=== PATIENT | female | born 1995 | race Caucasian/White ===

== ENCOUNTER 2017-11-20 19:01 | Emergency (ER) | payer OTHER ==
--- NOTE | 2017-11-20 20:00 | RAD ---
INDICATION: Right knee injury. TECHNIQUE: 2 views of the right knee were obtained. FINDINGS: The bones are in normal alignment. There is a moderate size joint effusion present. No fracture is seen. Joint spaces appear maintained. IMPRESSION: JOINT EFFUSION, NO FRACTURE IS SEEN.
[2017-11-20 20:54] VITALS: BP 135/78
--- NOTE | 2017-11-20 20:59 | ED ---
Lower Extremity - HPI Summary HPI Summary: Patient is a 22-year-old female who presents to emergency department for right knee injury that occurred just prior to arrival. Patient states she was skateboarding when all of a sudden her right leg bent sideways and her patella subluxed. EMS reportedly reduced patella. She denies numbness, tingling or weakness to extremity. Symptoms are mild in severity. She states this has never happened in the past. Movement of the makes symptoms worse. Rest makes symptoms better. Has not ambulated since incident. - History of Current Complaint Chief Complaint: EDExtremityLower Stated Complaint: RT LEG INJURY Time Seen by Provider: 11/20/17 19:16 Hx Obtained From: Patient Pain Intensity: 1 - Allergies/Home Medications Allergies/Adverse Reactions: Allergies Allergy/AdvReac Type Severity Reaction Status Date / Time No Known Allergies Allergy Verified 11/20/17 19:32 Home Medications: Home Medications NK [No Home Medications Reported] 11/20/17 [History Confirmed 11/20/17] PMH/Surg Hx/FS Hx/Imm Hx Previously Healthy: Yes - Immunization History Immunizations Up to Date: Yes Infectious Disease History: No Infectious Disease History: Reports: Traveled Outside the [place] in Last 30 Days - [place] - Social History Occupation: Student Lives: Dormitory/Roommates Alcohol Use: None Substance Use Type: Reports: None Smoking Status (MU): Never Smoked Tobacco Review of Systems Positive: Other - right knee pain Skin: Negative Negative: Weakness, Paresthesia, Numbness All Other Systems Reviewed And Are Negative: Yes Physical Exam Triage Information Reviewed: Yes Vital Signs On Initial Exam: Initial Vitals Pulse BP Pulse Ox 94 148/96 100 11/20/17 19:18 11/20/17 19:18 11/20/17 19:18 Vital Signs Reviewed: Yes Appearance: Positive: Well-Appearing - Patient lying on bed in no acute distress. Friend present. Skin: Positive: Warm, Dry Head/Face: Positive: Normal Head/Face Inspection Eyes: Positive: Normal, [place] Neck: Positive: Supple Musculoskeletal: Positive: Other - Small effusion noted to the right knee. Knee is stable without increase in laxity with valgus and varus stressing and anterior drawer. Good palpable pedal pulse. No proximal or distal injuries. Neurological: Positive: Normal, CN Intact II-III Psychiatric: Positive: Normal Procedures - Splinting Pre-Made Type: knee immobilizer Pre-Proc Neuro Vasc Exam: normal Post-Proc Neuro Vasc Exam: normal Diagnostics - Vital Signs Vital Signs Temp Pulse Resp BP Pulse Ox 11/20/17 20:18 95 135/94 99 11/20/17 20:00 100 94 11/20/17 19:48 99 128/86 97 11/20/17 19:21 99.3 F 92 18 148/96 100 11/20/17 19:19 90 99 11/20/17 19:18 94 148/96 100 - Laboratory Lab Statement: Any lab studies that have been ordered have been reviewed, and results considered in the medical decision making process. Lower Extremity Course/Dx - Course Course Of Treatment: Patient presenting for evaluation after right knee injury. It was reported that patient had a right subluxed patella that was reduced in the field. Leg is neurovascularly intact. Pt. declined algesic. Knee x-ray shows effusion without facture dislocation, reading per radiology. Knee immobilizer and crutches were placed. Recommend patient follow up with orthopedics for further evaluation and PT. To ice and elevate. Can take Tylenol or Motrin for pain as directed. Patient understands and agrees with plan. - Diagnoses Differential Diagnosis/HQI/PQRI: Positive: Dislocation, Fracture (Closed), Sprain, Strain Provider Diagnoses: Patellar subluxation Discharge - Sign-Out/Discharge Documenting (check all that apply): Discharge/Admit/Transfer - Discharge Plan Condition: Good Disposition: HOME Patient Education Materials: Patellar Dislocation (ED) Referrals: Ruth Edwards MD [Medical Doctor] - No Primary Care Phys,NOPCP [Medical Doctor] - Additional Instructions: Call Dr. Edwards's office on Wednesday for an appointment Use crutches and brace for walking Ice and elevate Tylenol or Motrin for pain as directed Return to ER if symptoms change or worsen - Billing Disposition and Condition Condition: GOOD Disposition: HOME
== END 2017-11-20 20:52 | disposition home or self-care (01) ==
LOC: ED 19:01
DX: S83.001A Unspecified subluxation of right patella, initial encounter (principal); X50.0XXA Overexertion from strenuous movement or load, initial encounter; Y93.51 Activity, roller skating (inline) and skateboarding; Y92.9 Unspecified place or not applicable; M25.461 Effusion, right knee
CPT/HCPCS: 99282